=== PATIENT | female | born 1995 | race African-American/Black ===

== ENCOUNTER 2017-01-09 13:20 | Emergency (ER) | payer OTHER ==
[~2017-01-09] VITALS: Ht 165.1 cm; Wt 104.3 kg
[~2017-01-09 13:20] MED LIST: AMOXICILLIN500 M1 PO; AURALGAN OTIC S10 ML AD
== END 2017-01-09 14:57 | disposition home or self-care (01) ==
LOC: CED 13:20 → CFTX 13:20
DX: H61.23 Impacted cerumen, bilateral (principal); H60.92 Unspecified otitis externa, left ear
CPT/HCPCS: 69209; 99283